=== PATIENT | female | born 1985 | race Caucasian/White ===

== ENCOUNTER 2020-09-15 15:31 | Outpatient (CLI) | payer OTHER, SELFPAY | END 2020-09-15 15:32 | disposition home or self-care (01) | LOC: ANHCOVIDVC 15:31 | PROVIDERS: PCP Internal Medicine | DX: Z23 Encounter for immunization (principal) | CPT/HCPCS: 0001A; 91300 ==

== ENCOUNTER 2020-09-21 07:42 | Outpatient (CLI) | payer OTHER, SELFPAY ==
--- NOTE | ~2020-09-21 | US_ITS ---
EXAMINATION: US abdomen complete EXAM DATE: 09/21/2020 08:17 INDICATION: R10.9 - Unspecified abdominal pain. TECHNIQUE: Multiple grayscale and Doppler images of the complete abdomen were obtained (by a technolo gist who performed the scan) and subsequently reviewed. There is no prior study for comparison. FINDINGS: The abdominal aorta is normal in caliber. Visualized portion IVC is patent. The pancreatic head a nd body are normal in appearance. The pancreatic tail is not visualized. There is echogenic liver parenchyma, hepatic steatosis. There are no focal liver lesions identified. There is no evidence of intrahepatic biliary duct dilation. Portal venous flow was seen in the he patopedal, normal direction and has normal Doppler waveform. Common bile duct measures 3 mm, which is normal. The gallbladder wall is normal in thickness, with ex pected amount of distention. No sonographic evidence of pericholecystic fluid. There is no cholelit hiases. Technologist performing exam reports patient did not demonstrate sonographic Galindo's sign. Please note that this sign is less reliable in patients who have received pain medication. Right kidney: There is normal contour and echogenicity. It measures 10.9 x 3.8 x 4.4 centimeters. There are no focal renal lesions identified. There is no hydronephrosis. Left kidney: There is normal contour and echogenicity. It measures 11.1 x 5.0 x 5.0 centimeters. T here are no focal renal lesions identified. There is no hydronephrosis. The spleen measures 11.6 centimeters and is morphologically normal. IMPRESSION: 1. Hepatic steatosis. Reviewed, dictated and finalized at location A. IMPRESSION: 1. Hepatic steatosis.
== END 2020-09-21 07:43 | disposition home or self-care (01) ==
PROVIDERS: PCP Internal Medicine; Visit Provider Nurse Practitioner
DX: R10.9 Unspecified abdominal pain (principal); K76.0 Fatty (change of) liver, not elsewhere classified
CPT/HCPCS: 76700

== ENCOUNTER 2020-10-16 17:43 | Outpatient (CLI) | payer OTHER, SELFPAY | END 2020-10-16 17:44 | disposition home or self-care (01) | LOC: ANHCOVIDVC 17:43 | PROVIDERS: PCP Internal Medicine | DX: Z23 Encounter for immunization (principal) | CPT/HCPCS: 0002A; 91300 ==

== ENCOUNTER 2020-12-30 11:59 | Emergency (ER) | payer OTHER, SELFPAY ==
--- NOTE | 2020-12-30 12:01 | ED.GENADULT ---
HPI - General Adult General Chief complaint: Upper Respiratory Infection Stated complaint: cough/chest congestion/sinus pressure Time Seen by Provider: 12/30/20 12:01 Source: patient Mode of arrival: ambulatory Limitations: no limitations Related Data Home Medications Medication Instructions Recorded Confirmed multivitamin 1 tablet PO DAILY 08/05/19 10/18/20 norgestimate-ethinyl estradiol 1 tablet PO DAILY 08/05/19 10/18/20 0.18 mg/0.215mg/0.25mg-35 mcg(28)tablet Allergies Allergy/AdvReac Type Severity Reaction Status Date / Time No Known Allergies Allergy Mild Verified 05/01/08 14:29 Review of Systems Review of Systems: Narrative: CONSTITUTIONAL: Denies fever, chills, or sweats. EYES: Denies visual changes, redness, or discharge. ENT: Denies rhinorrhea, congestion, sore throat, or otalgia. CARDIOVASCULAR: Denies chest pain, palpitations, or edema. RESPIRATORY: Denies cough or dyspnea. GASTROINTESTINAL: Denies abdominal pain, nausea, vomiting, or diarrhea. GENITOURINARY: Denies dysuria or hematuria. SKIN: Denies rash or itching. MUSCULOSKELETAL: Denies back pain, joint pain, or myalgia. NEUROLOGIC: Denies headache, numbness, or weakness. PSYCHIATRIC: Denies anxiety or depression. [facility] Past Medical History Medical History Allergies GERD (gastroesophageal reflux disease) Migraine headache Surgical History Surgical History H/O myringotomy 1988 History of placement of ear tubes Removed 1994 Family History Family History Mother Family history of migraine headaches Patient's mother is in good health Family history of diabetes mellitus in first degree relative Diabetes mellitus Hypertension Family history of cardiovascular disease Sibling Patient's sister is in good health Patient's brother is in good health Grandparent Diabetes mellitus Hypertension Cerebrovascular accident Father Hypertension Other Family history of allergic disorder Family history of learning disability Family history of malignant neoplasm of breast Family history of obesity Social History Social History Smoking status: Never smoker Alcohol intake: current Comments At the time of my signature I agree with nursing past medical history, surgical, social, and family history. There is no relevant family history pertinent to the presenting complaint. Exam Narrative: Exam Narrative: GENERAL: Well-appearing, well-nourished, and in no acute distress. HEAD: Normocephalic, atraumatic. EYES: PERRLA and EOMI. ENT: Nares clear, no rhinorrhea or epistaxis. Mucous membranes moist. NECK: Supple. No lymphadenopathy CHEST: Clear to auscultation. No respiratory distress. HEART: Regular rate and rhythm. No murmur heard. Normal peripheral pulses. ABDOMEN: Soft, nontender, nondistended, normal active bowel sounds. EXTREMITIES: Normal range of motion. No edema. SKIN: Warm, dry, no rash. NEURO: No focal deficits. Alert and oriented x3. Course Vital Signs Vital signs: Vital Signs Temperature 36.3 C L 12/30/20 12:11 Pulse Rate 92 12/30/20 12:11 Respiratory Rate 16 12/30/20 12:11 Blood Pressure 105/67 12/30/20 12:11 Pulse Oximetry 98 12/30/20 12:11 Temperature 36.3 C L 12/30/20 12:11 Pulse Rate 92 12/30/20 12:11 Respiratory Rate 16 12/30/20 12:11 Blood Pressure 105/67 12/30/20 12:11 Pulse Oximetry 98 12/30/20 12:11 Vital signs reviewed Medical Decision Making Differential Diagnosis Differential Diagnosis: Differential diagnosis: Allergic rhinitis, chronic sinusitis, tonsillitis, acute sinusitis, infectious mononucleosis, seasonal influenza, pertussis, diphtheria, meningococcal disease, viral syndrome, viral bronchitis, RSV. Vital Signs Vital Signs: Vital Sign
[2020-12-30 12:11] VITALS: BP 105/67; PULSE 92; RESP 16; TEMP 36.3; O2SAT 98
== END 2020-12-30 12:25 | disposition home or self-care (01) ==
PROVIDERS: Emergency Provider Nurse Practitioner Family; PCP Internal Medicine
DX: J00 Acute nasopharyngitis [common cold] (principal); J01.90 Acute sinusitis, unspecified; J30.9 Allergic rhinitis, unspecified; R05 Cough; K21.9 Gastro-esophageal reflux disease without esophagitis
CPT/HCPCS: 99213; G0463

== ENCOUNTER 2021-09-13 14:42 | Emergency (ER) | payer BC, SELFPAY ==
[2021-09-13 14:50] VITALS: BP 115/72; PULSE 86; RESP 16; TEMP 36.7; O2SAT 99
--- NOTE | 2021-09-13 15:02 | ED.FEMALEGU ---
HPI - Female Genitourinary General Chief complaint: Urogenital-Female Stated complaint: Urinary pain Time Seen by Provider: 09/13/21 15:02 Source: patient, RN notes reviewed and old records reviewed Mode of arrival: ambulatory Limitations: no limitations History of Present Illness HPI Narrative: 36 year female accompanied by mother presents to express care with complaints of burning and hurting at end of stream with urination for the past 2 days. Patient also states that she is having frequency and urgency with her urination . patient reports that she has taken AZO which she started yesterday and also been drinking cranberry juice, last dose of AZO was this morning. Patient denies any concern for exposure to STD's no vaginal discharge or any vaginal itching. Patient states that she did start her menses today MD elicited complaint: dysuria Related Data Home Medications Medication Instructions Recorded Confirmed omeprazole 20 mg PO DAILY 09/13/21 09/13/21 Allergies Allergy/AdvReac Type Severity Reaction Status Date / Time Latex, Natural Rubber Allergy Rash Verified 09/13/21 14:50 Review of Systems Review of Systems: CONSTITUTIONAL: Denies fever, chills, or sweats. EYES: Denies visual changes, redness, or discharge. ENT: Denies rhinorrhea, congestion, sore throat, or otalgia. CARDIOVASCULAR: Denies chest pain, palpitations, or edema. RESPIRATORY: Denies cough or dyspnea. GASTROINTESTINAL: Denies abdominal pain, nausea, vomiting, or diarrhea. GENITOURINARY: Positive for dysuria or hematuria. SKIN: Denies rash or itching. MUSCULOSKELETAL: Denies back pain, joint pain, or myalgia. NEUROLOGIC: Denies headache, numbness, or weakness. PSYCHIATRIC: Positive for history of anxiety or depression. All systems reviewed & are unremarkable except as noted in HPI and below PMFSH Past Medical History Medical History Allergies GERD (gastroesophageal reflux disease) Migraine headache Surgical History Surgical History H/O myringotomy 1988 History of placement of ear tubes Removed 1994 Family History Family History Mother Family history of migraine headaches Patient's mother is in good health Family history of diabetes mellitus in first degree relative Diabetes mellitus Hypertension Family history of cardiovascular disease Sibling Patient's sister is in good health Patient's brother is in good health Grandparent Diabetes mellitus Hypertension Cerebrovascular accident Father Hypertension Other Family history of allergic disorder Family history of learning disability Family history of malignant neoplasm of breast Family history of obesity Social History Social History Smoking status: Never smoker Alcohol intake: current Alcohol use details: occasionally Comments At time of signature, agree with nursing past medical, surgical, social and family history. There is no relevant family history pertinent to the presenting complaint Exam Narrative: GENERAL: Well-appearing, well-nourished, and in no acute distress. HEAD: Normocephalic, atraumatic. EYES: PERRLA and EOMI. ENT: Nares clear, no rhinorrhea or epistaxis. Mucous membranes moist.TM's normal, throat with no redness, exudates or tonsil enlargement NECK: Supple. no lymphadenopathy CHEST: Clear to auscultation. No respiratory distress.SAO2 99% on room air HEART: Regular rate and rhythm. No murmur heard. Normal peripheral pulses. ABDOMEN: Soft, nontender, nondistended, normal active bowel sounds, no CVA tenderness upon evaluation. EXTREMITIES: Normal range of motion. No edema. SKIN: Warm, dry, no rash. NEURO: No focal deficits. Alert and oriented x3. Course Course Level of Care: Express Care Visit Vital Signs Vital sig
== END 2021-09-13 15:23 | disposition home or self-care (01) ==
PROVIDERS: Emergency Provider Registered Nurse; PCP Internal Medicine
DX: N39.0 Urinary tract infection, site not specified (principal); K21.9 Gastro-esophageal reflux disease without esophagitis
CPT/HCPCS: 81003; 87077; 87086; 87186; 99213; G0463

== ENCOUNTER 2021-11-09 12:56 | Outpatient (CLI) | payer BC, SELFPAY ==
--- NOTE | ~2021-11-09 | US_ITS ---
EXAMINATION: US abdomen limited DATE: 11/09/2021 14:07 INDICATION: Right upper quadrant pain TECHNIQUE: 09/21/2020 COMPARISON: None available FINDINGS: Bowel gas obscures visualization of the pancreas. The liver demonstrates increased echogeni city, heterogenous echotexture, and decreased through transmission. No surface nodularity. Normal hep atopetal flow in the main portal vein. The gallbladder is normal with no abnormal wall thickening, pe richolecystic fluid or stones. The normal common bile duct measures 4 mm. There was no sonographic Mu rphy sign. IMPRESSION: 1. Normal sonographic study of the gallbladder. 2. Diffuse hepatic steatosis. Reviewed, dictated and finalized at location B.
== END 2021-11-09 12:57 | disposition home or self-care (01) ==
PROVIDERS: PCP Internal Medicine; Visit Provider Nurse Practitioner
DX: R10.11 Right upper quadrant pain (principal); K76.0 Fatty (change of) liver, not elsewhere classified
CPT/HCPCS: 76705

== ENCOUNTER 2021-11-21 17:29 | Emergency (ER) | payer BC, SELFPAY ==
--- NOTE | 2021-11-21 17:31 | ED.LOWEXIN ---
HPI - Extremity Injury (Lower) General Chief Complaint: Extremity Injury, Lower Stated Complaint: R FOOT PAIN Time Seen by Provider: 11/21/21 17:32 Source: patient, family and RN notes reviewed History of Present Illness HPI Narrative: Patient is a 36-year-old female who presents the urgent care with her mother with complaints of right foot pain. Patient states that she woke up today and felt like she had a charley horse. Patient states that whenever she bears weight to the right foot she has sharp shooting pains from the center bottom of the foot to the heel. Patient denies of any injury or fall. Patient states that she does stand/walk approximately 8 hours/day at work in a flat shoe. Patient does not have any history of plantar fasciitis. Denies of any injury to that foot in the past. Patient denies of any swelling, redness or ecchymosis. Denies pain with the exception of weightbearing. No other acute complaints. No acute distress noted. Patient aware of the plan of care. Some parts of this dictation were generated by voice recognition software and may contain typographical and/or grammatical inaccuracies. Related Data Home Medications Medication Instructions Recorded Confirmed omeprazole 20 mg PO DAILY 09/13/21 09/13/21 Allergies Allergy/AdvReac Type Severity Reaction Status Date / Time Latex, Natural Rubber Allergy Rash Verified 09/13/21 14:50 Review of Systems Review of Systems: CONSTITUTIONAL: Denies fever, chills, or sweats. EYES: Denies visual changes, redness, or discharge. ENT: Denies rhinorrhea, congestion, sore throat, or otalgia. CARDIOVASCULAR: Denies chest pain, palpitations, or edema. RESPIRATORY: Denies cough or dyspnea. GASTROINTESTINAL: Denies abdominal pain, nausea, vomiting, or diarrhea. GENITOURINARY: Denies dysuria or hematuria. SKIN: Denies rash or itching. MUSCULOSKELETAL: Reports of right foot pain NEUROLOGIC: Denies headache, numbness, or weakness. All other systems reviewed are negative, except as documented in HPI. [facility] Past Medical History Medical History Allergies GERD (gastroesophageal reflux disease) Migraine headache Surgical History Surgical History H/O myringotomy 1989 History of placement of ear tubes Removed 1994 Family History Family History Mother Family history of migraine headaches Patient's mother is in good health Family history of diabetes mellitus in first degree relative Diabetes mellitus Hypertension Family history of cardiovascular disease Breast cancer double mastectomy 08/24/21; patient was given genetic testing and found to be negative. Sibling Patient's sister is in good health Patient's brother is in good health Grandparent Diabetes mellitus Hypertension Cerebrovascular accident Father Hypertension Other Family history of allergic disorder Family history of learning disability Family history of malignant neoplasm of breast Family history of obesity Social History Social History Smoking status: Never smoker Alcohol intake: current Alcohol use details: occasionally Substance use: never Comments At the time of my signature, I reviewed and agree with the nursing past medical, surgical, social, and family history. There is no relevant family history pertinent to the patient complaint. Exam Narrative: GENERAL: This is a well-nourished, well-developed patient, in no apparent distress. HEAD: normocephalic, atraumatic. EYES: PERRL. Sclera clear/white. Vision is grossly intact. EARS: External ears normal NOSE: External nose normal with no obvious nasal discharge, nares without redness, no rhinorrhea. THROAT: Mucous membranes moist NECK: Neck supple CARDIOVASCULAR: Regular rate and rhythm without
[2021-11-21 17:35] VITALS: BP 127/80; PULSE 93; RESP 16; TEMP 36.2; O2SAT 99
== END 2021-11-21 17:59 | disposition home or self-care (01) ==
PROVIDERS: Emergency Provider Nurse Practitioner Family; PCP Internal Medicine
DX: M72.2 Plantar fascial fibromatosis (principal); K21.9 Gastro-esophageal reflux disease without esophagitis
CPT/HCPCS: 99212; G0463

== ENCOUNTER 2023-04-29 11:36 | Emergency (ER) | payer BC, SELFPAY ==
[2023-04-29 11:44] VITALS: BP 116/76; PULSE 107; RESP 16; TEMP 36.1; O2SAT 99
--- NOTE | 2023-04-29 12:36 | ED.URI ---
HPI - URI/Sore Throat General Chief Complaint: Upper Respiratory Infection Stated Complaint: Flu symptoms Time Seen by Provider: 04/29/23 12:20 Source: patient, RN notes reviewed and old records reviewed Mode of arrival: ambulatory Limitations: no limitations History of Present Illness HPI Narrative: 37 year old female who presents to [facility] care with complaints of having body aches and back pain since Friday night. Patient states she has also had a headache with some nausea and vomiting and slept all day yesterday. Patient denies any acute cough or asore throat, admits to some sinus drainage. Patient reports that she has had chills and sweats but unknown if any fevers. She states bryan she has been taking Tylenol and Ibuprofen for her discomfort. MD elicited complaint: rhinorrhea, nasal congestion and other (body aches, headache, nausea and vomiting) Pertinent past history: other (migraines,GERD) Onset (ago): day(s) (3) Pain scale (0-10): 2 Description of mucous: clear Able to tolerate fluids by mouth: Yes Treatments prior to arrival: acetaminophen and ibuprofen Related Data Home Medications Medication Instructions Recorded Confirmed omeprazole 20 mg capsule,delayed 20 mg PO DAILY 09/13/21 02/03/23 release cetirizine 10 mg tablet (Zyrtec) 10 mg PO DAILY 05/07/22 04/29/23 Allergies Allergy/AdvReac Type Severity Reaction Status Date / Time Latex, Natural Rubber Allergy Rash Verified 04/29/23 12:16 Review of Systems Review of Systems: CONSTITUTIONAL: reports malaise, chills, sweats, unknown if fever. EYES: Denies visual changes, redness, or discharge. ENT: Reports rhinorrhea, congestion, no sinus pain, no otalgia and no sore throat. CARDIOVASCULAR: Denies chest pain, palpitations, or edema. RESPIRATORY: Reports cough.? Denies dyspnea. GASTROINTESTINAL: Denies abdominal pain, positive for nausea, vomiting,no diarrhea SKIN: Denies rash or itching. MUSCULOSKELETAL Reports myalgia. NEUROLOGIC: Reports headache. All systems reviewed & are unremarkable except as noted in HPI and below PMFSH Past Medical History Medical History Allergies GERD (gastroesophageal reflux disease) Migraine headache Surgical History Surgical History H/O myringotomy 1988 History of placement of ear tubes Removed 1994 Family History Family History Mother Family history of migraine headaches Patient's mother is in good health Family history of diabetes mellitus in first degree relative Diabetes mellitus Hypertension Family history of cardiovascular disease Breast cancer double mastectomy 08/24/21; patient was given genetic testing and found to be negative. Sibling Patient's sister is in good health Patient's brother is in good health Grandparent Diabetes mellitus Hypertension Cerebrovascular accident Father Hypertension Other Family history of allergic disorder Family history of learning disability Family history of malignant neoplasm of breast Family history of obesity Social History Social History Social History: Caffeine-coffee daily Smoking status: Never smoker Alcohol intake: current Alcohol use details: occasionally Substance use: never Lack of Transportation: YES Lack of Food: Never True Current Housing: I Have Housing Concerned About Future Housing: No Difficulty Paying Gas/Electric Bills: No Difficulty Paying for Meds: No Currently Unemployed: No Education: High School Diploma/GED Difficulty w/ Childcare or Family Care: No Comments At time of signature, agree with nursing past medical, surgical, social and family history. There is no relevant family history pertinent to the presenting complaint Exam Narrative: GENERAL
== END 2023-04-29 13:00 | disposition home or self-care (01) ==
PROVIDERS: Emergency Provider Registered Nurse; PCP Internal Medicine
DX: J06.9 Acute upper respiratory infection, unspecified (principal); R11.2 Nausea with vomiting, unspecified; Z20.822 Contact with and (suspected) exposure to COVID-19; K21.9 Gastro-esophageal reflux disease without esophagitis
CPT/HCPCS: 87081; 87426; 87804; 87880; 99213; C9803; G0463

== ENCOUNTER 2023-05-13 09:31 | Outpatient (CLI) | payer BC, SELFPAY ==
[2023-05-13 11:57] LABS: Free T4 Free Thyroxine 0.87 ng/mL (0.78-2.19)
[2023-05-13 13:21] LABS: Hemoglobin A1C 5.6 % (<5.7)
[2023-05-16 05:50] LABS: Insulin Level Total 16.8 uIU/mL (<=18.4); Prolactin 5.7 ng/mL (***)
== END 2023-05-13 09:32 | disposition home or self-care (01) ==
PROVIDERS: PCP Internal Medicine; Visit Provider Advanced Practice Midwife
DX: N92.6 Irregular menstruation, unspecified (principal)
CPT/HCPCS: 36415; 83036; 83498; 83525; 84146; 84402; 84439; 84443

== ENCOUNTER 2023-05-22 10:14 | Outpatient (CLI) | payer BC, SELFPAY ==
--- NOTE | ~2023-05-22 | US_ITS ---
Pelvic ultrasound. Clinical History: Abnormal uterine bleeding Technique: Realtime transabdominal scanning of the pelvis was performed. Color flow Doppler and Doppl er spectral analysis were performed. Findings: The uterus is anteverted. The endometrial stripe has a thickness of 3 mm. No focal mass is identified. The right ovary measures 2.1 x 2.1 x 2.3 cm. No significant right ovarian or adnexal mass is seen. The left ovary measures 2.4 x 1.8 x 2.6 cm. No significant left ovarian or adnexal mass is seen. There is no evidence of free fluid in the cul de sac. Impression: Unremarkable pelvic ultrasound. Reviewed, dictated and finalized at location . [employer] Impression: Unremarkable pelvic ultrasound.
== END 2023-05-22 10:15 ==
PROVIDERS: PCP Internal Medicine; Visit Provider Advanced Practice Midwife
DX: N93.8 Other specified abnormal uterine and vaginal bleeding (principal); R10.32 Left lower quadrant pain
CPT/HCPCS: 76856

== ENCOUNTER 2023-09-23 07:11 | Outpatient (CLI) | payer BC, SELFPAY ==
[2023-09-23 08:07] LABS: Alanine Aminotransferase 64 U/L (6-35); Albumin Level 4.5 g/dL (3.5-5.1); Alkaline Phosphatase 81 U/L (38-126); Anion Gap 8 mmol/L (8-16); Aspartate Amino Transferase 43 U/L (14-36); Bilirubin,Total 0.4 mg/dL (0.2-1.3); Blood Urea Nitrogen 12 mg/dL (7-17); Calcium 9.4 mg/dL (8.4-10.2); Carbon Dioxide 28 mmol/L (22-30); Chloride 103 mmol/L (98-107); Cholesterol 229 mg/dL (0-200); Estimated Glomerular Filt Rate > 60; Glucose 105 mg/dL (65-110); HDL Direct 46 mg/dL; Potassium 4.2 mmol/L (3.4-5.0); Sodium 139 mmol/L (137-145); Triglycerides 127 mg/dL (<150)
[2023-09-23 08:18] LABS: LDL Cholesterol Direct 154 mg/dL
[2023-09-23 08:25] LABS: Hemoglobin A1C 5.9 % (<5.7)
[2023-09-23 08:44] LABS: Vitamin D 25 Hydroxy 37.5 ng/mL
== END 2023-09-23 07:12 | disposition home or self-care (01) ==
LOC: ANHLAB 07:15
PROVIDERS: PCP Internal Medicine; Visit Provider Advanced Practice Midwife
DX: E13.21 Other specified diabetes mellitus with diabetic nephropathy (principal)
CPT/HCPCS: 36415; 80053; 80061; 82306; 83036; 83525

== ENCOUNTER 2023-09-23 15:25 | Outpatient (CLI) | payer BC, SELFPAY ==
--- NOTE | ~2023-09-23 | US_ITS ---
Ultrasound of the right neck CLINICAL HISTORY: Palpable lump TECHNIQUE: Targeted sonographic imaging performed the posterior right neck at the area of palpable co ncern. FINDINGS: At the area of concern, there is a 6 x 6 x 6 mm probable lymph node, with reniform hypoecho ic cortex and fatty hilum. No other mass lesion identified in the region scanned. IMPRESSION: Probable subcentimeter lymph node at the area of concern, with benign appearance. Clinical follow-up advised. Reviewed, dictated and finalized at location M. IMPRESSION: Probable subcentimeter lymph node at the area of concern, with benign appearanc e. Clinical follow-up advised.
== END 2023-09-23 15:26 ==
PROVIDERS: PCP Internal Medicine; Visit Provider Advanced Practice Midwife
DX: R22.1 Localized swelling, mass and lump, neck (principal)
CPT/HCPCS: 76536

== ENCOUNTER 2023-09-24 06:51 | Outpatient (NON) | payer BC, SELFPAY ==
[2023-09-27 09:43] LABS: Insulin Level Total 16.1 uIU/mL (<=18.4)
== END 2023-09-24 06:52 | disposition home or self-care (01) ==
PROVIDERS: PCP Internal Medicine; Visit Provider Advanced Practice Midwife
DX: E13.21 Other specified diabetes mellitus with diabetic nephropathy (principal)
CPT/HCPCS: 36415; 83525

== ENCOUNTER 2023-10-15 08:45 | Emergency (ER) | payer BC, SELFPAY ==
[2023-10-15 08:54] VITALS: BP 91/76; PULSE 90; RESP 16; TEMP 36.3; O2SAT 99
--- NOTE | 2023-10-15 09:30 | ED.URI ---
HPI - URI/Sore Throat General Chief Complaint: Upper Respiratory Infection Stated Complaint: CHILLS/FEVER/COUGH Time Seen by Provider: 10/15/23 09:15 Source: patient Mode of arrival: ambulatory Limitations: no limitations History of Present Illness HPI Narrative: 38-year-old female presents with complaint of nasal congestion, cough, fatigue, body aches, fever for 3 days. Afebrile on arrival. Took Tylenol prior to arrival. No chest pain or shortness of breath. Patient states has missed several days of work. Denies nausea vomiting diarrhea. All systems reviewed and negative except as noted above. Related Data Home Medications Medication Instructions Recorded Confirmed omeprazole 20 mg capsule,delayed 20 mg PO DAILY 09/13/21 02/03/23 release cetirizine 10 mg tablet (Zyrtec) 10 mg PO DAILY 05/07/22 04/29/23 Allergies Allergy/AdvReac Type Severity Reaction Status Date / Time Latex, Natural Rubber Allergy Rash Verified 09/23/23 08:14 Review of Systems Review of Systems: CONSTITUTIONAL: Denies fever, chills, or sweats. EYES: Denies visual changes, redness, or discharge. ENT: Reports rhinorrhea, congestion, sore throat. Denies otalgia. CARDIOVASCULAR: Denies chest pain, palpitations, or edema. RESPIRATORY: Reports cough. Denies dyspnea. GASTROINTESTINAL: Denies abdominal pain, nausea, vomiting, or diarrhea. GENITOURINARY: Denies dysuria or hematuria. SKIN: Denies rash or itching. MUSCULOSKELETAL: Denies back pain, joint pain, or myalgia. NEUROLOGIC: Denies headache, numbness, or weakness. PSYCHIATRIC: Denies anxiety or depression. All other systems reviewed are negative, except as documented in HPI. [facility] Past Medical History Medical History Allergies GERD (gastroesophageal reflux disease) Migraine headache Surgical History Surgical History H/O myringotomy 1988 History of placement of ear tubes Removed 1994 Family History Family History Mother Family history of migraine headaches Patient's mother is in good health Family history of diabetes mellitus in first degree relative Diabetes mellitus Hypertension Family history of cardiovascular disease Breast cancer double mastectomy 08/24/21; patient was given genetic testing and found to be negative. Sibling Patient's sister is in good health Patient's brother is in good health Grandparent Diabetes mellitus Hypertension Cerebrovascular accident Father Hypertension Other Family history of allergic disorder Family history of learning disability Family history of malignant neoplasm of breast Family history of obesity Social History Social History (System 09/23/23 @ 08:14 by Cristina Quinn) Social History: Caffeine-coffee daily Smoking status: Never smoker Alcohol intake: current Alcohol use details: occasionally Substance use: never Lack of Transportation: YES Lack of Food: Never True Current Housing: I Have Housing Concerned About Future Housing: No Difficulty Paying Gas/Electric Bills: No Difficulty Paying for Meds: No Currently Unemployed: No Education: High School Diploma/GED Difficulty w/ Childcare or Family Care: No Comments At time of signature, agree with nursing past medical, surgical, social and family history. There is no relevant family history pertinent to the presenting complaint. Exam Narrative: GENERAL: This is a well-nourished, well-developed patient, ill-appearing but in no acute distress. HEAD: normocephalic, atraumatic. EYES: PERRL. Sclera clear/white. Vision is grossly intact. EARS: External ears normal, auditory canals clear and without drainage, TMs normal without perforation. Hearing grossly intact. NOSE: External nose normal with clear nasal drainage, erythema to bilateral nares. THROAT: Mu
== END 2023-10-15 09:31 | disposition home or self-care (01) ==
PROVIDERS: Emergency Provider Nurse Practitioner Family; PCP Internal Medicine
DX: J10.1 Influenza due to other identified influenza virus with other respiratory manifestations (principal); Z20.822 Contact with and (suspected) exposure to COVID-19; K21.9 Gastro-esophageal reflux disease without esophagitis
CPT/HCPCS: 87081; 87426; 87804; 87880; 99213; G0463

== ENCOUNTER 2024-03-12 11:15 | Outpatient (CLI) | payer BC, SELFPAY ==
[2024-03-12 11:34] LABS: Basophils Percent Auto 0.3 % (0.2-1.2); Eosinophils Percent Auto 0.5 % (0-4.4); Hematocrit 41.7 % (37.0-47.0); Hemoglobin 14.1 g/dL (12.0-15.0); Immature Granulocyte Absolute 0.02 K/mm3 (0.00-0.031); Immature Granulocyte Percent A 0.3 % (0-0.5); Lymphocytes Absolute Auto 1.99 K/mm3 (0.9-3.2); Lymphocytes Percent Auto 33.1 % (18.3-44.2); Mean Corpuscular HGB Conc 33.8 g/dl (32-36); Mean Corpuscular Hemoglobin 30.7 pg (26-34); Mean Corpuscular Volume 90.7 fl (80-100); Mean Platelet Volume 10.2 fl (7.4-10.4); Monocytes Absolute Auto 0.4 K/mm3 (0.1-0.6); Monocytes Percent Auto 6.1 % (2.6-8.5); Neutrophils Absolute Auto 3.6 K/mm3 (1.3-6.7); Neutrophils Percent Auto 59.7 % (45.5-73.1); Platelet Count Result 227 k/mm3 (150-375); Red Cell Distribution Width 12.5 % (11.5-14.5)
[2024-03-12 11:44] LABS: Alanine Aminotransferase 56 U/L (6-35); Albumin Level 4.3 g/dL (3.5-5.1); Alkaline Phosphatase 71 U/L (38-126); Anion Gap 9 mmol/L (4-12); Aspartate Amino Transferase 45 U/L (14-36); Bilirubin,Total 0.5 mg/dL (0.2-1.3); Blood Urea Nitrogen 7 mg/dL (7-17); Calcium 8.9 mg/dL (8.4-10.2); Carbon Dioxide 28 mmol/L (22-30); Chloride 99 mmol/L (98-107); Estimated Glomerular Filt Rate > 60; Glucose 113 mg/dL (65-110); Potassium 4.2 mmol/L (3.4-5.0); Sodium 136 mmol/L (137-145)
[2024-03-12 12:07] LABS: Hemoglobin A1C 5.9 % (<5.7)
[2024-03-12 12:51] LABS: Folic Acid 8.1 ng/mL (2.76->20)
== END 2024-03-12 11:16 | disposition home or self-care (01) ==
LOC: ANHLAB 11:17
PROVIDERS: PCP Internal Medicine; Visit Provider Nurse Practitioner
DX: Z13.29 Encounter for screening for other suspected endocrine disorder (principal); D64.9 Anemia, unspecified; K76.0 Fatty (change of) liver, not elsewhere classified; R73.03 Prediabetes; R53.83 Other fatigue
CPT/HCPCS: 36415; 80053; 82607; 82746; 83036; 84443; 85025

== ENCOUNTER 2024-11-02 08:53 | Outpatient (CLI) | payer BC, SELFPAY ==
[2024-11-02 10:00] LABS: Alanine Aminotransferase 31 U/L (6-35); Albumin Level 4.3 g/dL (3.5-5.1); Alkaline Phosphatase 83 U/L (38-126); Anion Gap 9 mmol/L (4-12); Aspartate Amino Transferase 30 U/L (14-36); Bilirubin,Total 0.5 mg/dL (0.2-1.3); Blood Urea Nitrogen 12 mg/dL (7-17); Carbon Dioxide 28 mmol/L (22-30); Chloride 100 mmol/L (98-107); Estimated Glomerular Filt Rate > 60; Glucose 99 mg/dL (65-110); Potassium 4.1 mmol/L (3.4-5.0); Sodium 137 mmol/L (137-145)
[2024-11-02 10:07] LABS: Hemoglobin A1C 5.6 % (<5.7)
== END 2024-11-02 08:54 | disposition home or self-care (01) ==
LOC: ANHLAB 08:55
PROVIDERS: PCP Internal Medicine; Visit Provider Nurse Practitioner
DX: R73.03 Prediabetes (principal)
CPT/HCPCS: 36415; 80053; 83036

== ENCOUNTER 2025-03-15 15:30 | Emergency (ER) | payer OTHER, BC, SELFPAY ==
--- NOTE | ~2025-03-15 | XR_ITS ---
EXAMINATION: XR foot RT min 3V, 03/15/2025 15:45 CDT HISTORY: right foot pain x 2 days, hit on pallet COMPARISON: No comparisons available. Findings: No acute fracture or malalignment. No significant degenerative changes. Soft tissues unremarkable. Impression: No acute fracture or malalignment. Reviewed, dictated and finalized at location A. Impression: No acute fracture or malalignment.
--- NOTE | 2025-03-15 15:31 | ED.LOWEXIN ---
HPI - Extremity Injury (Lower) General Chief Complaint: Extremity Injury, Lower Stated Complaint: Injured toe Source: patient and RN notes reviewed Mode of arrival: ambulatory Limitations: no limitations History of Present Illness HPI Narrative: Patient is a 39-year-old female who presents to the [facility] with complaints of a right foot pain, specifically at the 4th and 5th toes. Patient states that she was work at [employer] when she accidentally ran over her foot with a pallet zaida. Patient presents with bruising to the base of the 4th and 5th toes. There is no obvious deformity. She is neurovascularly intact distally. Sensation is intact. Patient has normal range of motion of the right foot. Related Data Home Medications ?Medication ?Instructions ?Recorded ?Confirmed ?Last Taken ?Type omeprazole 20 mg capsule,delayed 20 mg PO DAILY 09/13/21 11/04/24 Unknown History release Allergies Allergy/AdvReac Type Severity Reaction Status Date / Time Penicillins Allergy Mild Other Verified 03/15/25 15:51 Latex, Natural Rubber Allergy Rash Verified 03/15/25 15:51 Review of Systems Review of Systems: CONSTITUTIONAL: Denies fever, chills, or sweats. EYES: Denies visual changes, redness, or discharge. ENT: Denies otalgia and sore throat CARDIOVASCULAR: Denies chest pain, palpitations, or edema. RESPIRATORY: Denies cough or dyspnea. GASTROINTESTINAL: Denies abdominal pain, nausea, vomiting, or diarrhea. GENITOURINARY: Denies dysuria or hematuria. SKIN: Denies rash or itching. MUSCULOSKELETAL: Reports right foot pain. NEUROLOGIC: Denies headache, numbness, or weakness. Pertinent positives per HPI. [facility] Past Medical History Medical History Migraine headache Allergies GERD (gastroesophageal reflux disease) Surgical History Surgical History H/O myringotomy 1988 History of placement of ear tubes Removed 1994 Family History Family History Mother Family history of migraine headaches Patient's mother is in good health Family history of diabetes mellitus in first degree relative Diabetes mellitus Hypertension Family history of cardiovascular disease Breast cancer double mastectomy 08/24/21; patient was given genetic testing and found to be negative. Sibling Patient's sister is in good health Patient's brother is in good health Grandparent Diabetes mellitus Hypertension Cerebrovascular accident Father Hypertension Other Family history of allergic disorder Family history of learning disability Family history of malignant neoplasm of breast Family history of obesity Social History Social History Social History: Caffeine-coffee daily Smoking status: Never smoker Alcohol intake: current Alcohol use details: occasionally Substance use: never Substance use type: does not use Do You Feel Safe in your Home?: Yes Lack of Transportation: YES Lack of Food: Never True Current Housing: I Have Housing Concerned About Future Housing: No Difficulty Paying Gas/Electric Bills: No Difficulty Paying for Meds: No Currently Unemployed: No Education: High School Diploma/GED Difficulty w/ Childcare or Family Care: No Comments At the time of my signature, I reviewed and agree with the nursing past medical, surgical, social, and family history. There is no relevant family history pertinent to the patient complaint. Exam Narrative: GENERAL: This is a well-nourished, well-developed patient, in no apparent distress. HEAD: normocephalic, atraumatic. EYES: Sclera clear/white. Vision is grossly intact. EARS: External ears normal. Hearing grossly intact. NOSE: External nose normal with no obvious nasal discharge, nares without redness, no rhinorrhea. THROAT: Mucous membranes moist, posterior pharynx clear. NECK: Neck supple, non-tender without lymphadenopathy, masses or thyromegaly. CARDIOVASCULAR: Regular rate and rhythm without murmurs, gallops, or rubs. RESPIRATORY: Clear to auscultation. Breath sounds equal bilaterally. No wheezes, rales, or rhonchi. GASTROINTESTINAL: Abdomen soft, non-tender, nondistended. Bowel sounds are active. No hepato-splenomegaly, or palpable masses. No guarding. SKIN: warm, intact with no suspicious lesions or rash, good texture and turgor. NEURO: awake, alert, and oriented to person, place and time. There were no obvious focal neurologic abnormalities. EXTREMITIES: Right foot tenderness at the base of the 4th and 5th toes. Bruising present. Neurovascular status intact. Sensation intact. Course Course Level of Care: Express Care Visit Vital Signs Vital signs: Vital Signs Temperature 96.3 F L 03/15/25 15:43 Pulse Rate 97 03/15/25 15:43 Respiratory Rate 16 03/15/25 15:43 Blood Pressure 130/79 03/15/25 15:43 Pulse Oximetry 99 03/15/25 15:43 Temperature 96.3 F L 03/15/25 15:43 Pulse Rate 97 03/15/25 15:43 Respiratory Rate 16 03/15/25 15:43 Blood Pressure 130/79 03/15/25 15:43 Pulse Oximetry 99 03/15/25 15:43 Reviewed MDM - Extremity Injury (Lower) MDM Narrative Medical decision making narrative: Use the RICE method at home. May take ibuprofen and/or Tylenol if needed. If symptoms persist in 1 week after conservative treatment, follow-up with specialist. Differential Diagnosis Differential diagnosis: Likely fracture of toe and other (contusion of toe, foot fracture) Imaging Data Attestation: I personally reviewed and interpreted this imaging study as follows: Radiologist's impression: [address] [place] [address] XRay Report Signed Patient: Martha Vitale : 1985 MR#: [id number] Age: 39 Acct:[id number] Loc: [facility] ADM Date: 03/15/25Attending Dr: Ordering Physician: Luna Lopez APRN Date of Service: 03/15/25 Procedure(s): XR foot RT min 3V Accession Number(s): [id number] cc: Luna Lopez APRN; Jamie Fletcher DO~ EXAMINATION: XR foot RT min 3V, 03/15/2025 15:45 CDT HISTORY: right foot pain x 2 days, hit on pallet COMPARISON: No comparisons available. Findings: No acute fracture or malalignment. No significant degenerative changes. Soft tissues unremarkable. Impression: No acute fracture or malalignment. Reviewed, dictated and finalized at location A. Please be advised this is a medical document. It is intended for xthe-wo-tfru communication. It is written in medical language and may contain unfamiliar abbreviations or verbiage. Medical documents are intended to carry relevant information, facts as evident, and the clinical opinion of the practitioner at the time of the encounter. This report may have been done utilizing a voice recognition system. Attempts have been made to correct errors. However, there may be uncorrected grammatical, spelling, and recognition errors present. The file time of this note does not necessarily represent the time of service. Dictated By: Kaden Benitez MD 03/15/25 1554 Signed By: <Electronically signed by Kaden Benitez MD in OV> 03/15/25 1556 Critical Care Time Critical Care Time Critical Care Time: No Discharge Plan Discharge Clinical Impression: Contusion of fifth toe of right foot, Contusion of fourth toe of right foot Patient Disposition: Home Condition: Stable Instructions: Foot Contusion (ED), P.R.I.C.E. Treatment (ED) Additional Instructions: Use the RICE method at home. May take ibuprofen and/or Tylenol if needed. If symptoms persist in 1 week after conservative treatment, follow-up with specialist. Patient Language: Kinyarwanda Prescriptions: No Action omeprazole 20 mg Capsule,Delayed Release(Dr/Ec) 20 mg PO DAILY sertraline 50 mg tablet 50 mg PO DAILY Qty: 90 3RF (DME) blood-glucose meter [Advanced Glucose Meter] Misc See Rx Instructions .Route Qty: 1 0RF Rx Instructions: Use to check BS BID Follow-up/Referrals: Jamie Fletcher, [Primary Care Provider, Internal Medicine] Stand Alone Forms: Work/School Release IP Time of Disposition: 16:02
[2025-03-15 15:43] VITALS: BP 130/79; PULSE 97; RESP 16; TEMP 35.7; O2SAT 99
== END 2025-03-15 16:05 | disposition home or self-care (01) ==
PROVIDERS: Emergency Provider Nurse Practitioner; PCP Internal Medicine
DX: S90.121A Contusion of right lesser toe(s) without damage to nail, initial encounter (principal); W31.89XA Contact with other specified machinery, initial encounter; Y99.8 Other external cause status; K21.9 Gastro-esophageal reflux disease without esophagitis
CPT/HCPCS: 73630; 99213; G0463